=== PATIENT | male | born 1995 | race Two or more races ===

== ENCOUNTER 2020-12-31 08:18 | Day surgery (SDC) | payer OTHER ==
[~2020-12-31] VITALS: Ht 165.1 cm; Wt 69.4 kg
[~2020-12-31 08:18] MED LIST: LR 1,000 ML IV ONE; ceFAZolin SOD 2 GM in IV 1 EA IV ONE
[2020-12-31] MEDS ORDERED: propofoL 200 MG/20 ML VIAL As Ordered ONE (08:32)
[2020-12-31] MEDS ORDERED: LIDOCAINE 2% INJ 100 MG/5 ML SYRINGE As Ordered ONE (08:32)
[2020-12-31] MEDS ORDERED: fentaNYL 100 MCG/2 ML INJECTION As Ordered ONE (08:32)
[2020-12-31 08:56] LABS: HEMOGLOBIN 15.6 g/dl (13.5-17.5); MEAN CORPUSCULAR HEMOGLOBIN 28.4 pg (27.0-33.0); MEAN CORPUSCULAR HGB CONC 34.7 g/dl (32.0-36.5); MEAN CORPUSCULAR VOLUME 81.8 fl (80.0-96.0); PLATELET COUNT, AUTOMATED 234 10^3/uL (150-450); WHITE BLOOD COUNT 4.2 10^3/uL (4.0-10.0)
[2020-12-31] MEDS ORDERED: LIDOCAINE 1% SDV 30ML VIAL As Ordered ONE (09:20)
[2020-12-31] MEDS ORDERED: BACITRACIN OINTMENT 30GM TUBE As Ordered ONE (09:20)
[2020-12-31] MEDS ORDERED: BUPIVACAINE HCL 0.25% 30ML VIAL As Ordered ONE (09:20)
[2020-12-31] MEDS ORDERED: ONDANSETRON 4MG/2ML VIAL As Ordered ONE (09:22)
[2020-12-31 09:25] LABS: ALBUMIN 3.8 GM/DL (3.2-5.2); ALT/SGPT 20 U/L (12-78); BILIRUBIN,TOTAL 0.4 MG/DL (0.2-1.0); BLOOD UREA NITROGEN 13 MG/DL (7-18); CALCIUM LEVEL 9.3 MG/DL (8.5-10.1); CARBON DIOXIDE LEVEL 29 MEQ/L (21-32); CHLORIDE LEVEL 109 MEQ/L (98-107); CREATININE FOR GFR 1.02 MG/DL (0.70-1.30); GLOMERULAR FILTRATION RATE > 60.0 (>60); GLUCOSE, FASTING 83 MG/DL (70-100); POTASSIUM SERUM 3.4 MEQ/L (3.5-5.1); SODIUM LEVEL 142 MEQ/L (136-145); TOTAL PROTEIN 7.8 GM/DL (6.4-8.2)
[2020-12-31] MEDS ORDERED: BACT800T5 PO (09:51)
[2020-12-31] MEDS ORDERED: HYDR-3713 PO (09:51)
[2020-12-31] MEDS ORDERED: LR 1,000 ML IV SCH ×2 (09:55)
[2020-12-31] MEDS ORDERED: ONDANSETRON 4MG/2ML VIAL IV PRN (09:55)
[2020-12-31] MEDS ORDERED: MEPERIDINE INJ 25 MG/ML VIAL (J2175) IV PRN (09:55)
[2020-12-31] MEDS ORDERED: fentaNYL 100 MCG/2 ML INJECTION IV PRN (09:55)
[2020-12-31] MEDS: oxyCODONE 5MG TAB PO PRN ×2 (10:10→10:49)
[2020-12-31 10:55] VITALS: BP 126/88
== END 2020-12-31 11:15 | disposition home or self-care (01) ==
LOC: M SDC 08:18
PROVIDERS: ATTEND Urology
DX: N47.1 Phimosis (principal)
CPT/HCPCS: 36415; 54150; 80053; 85027; 88304; J0690; J2405; J3010; U0002